=== PATIENT | male | born 1940 | race American Indian/Alaskan Native ===

== ENCOUNTER 2017-11-15 18:54 | Emergency (ER) | payer MEDICARE, OTHER ==
[2017-11-15 19:27] VITALS: BP 163/81
[2017-11-15] MEDS ORDERED: PERCOCET 5/325 PO ONE (20:19)
--- NOTE | 2017-11-15 20:19 | Emergency Department Report ---
ED Fall HPI - General Chief Complaint: Extremity Problem,Nontraumatic Stated Complaint: ELBOW SWELLING Time Seen by Provider: 11/15/17 20:18 Source: patient, family Mode of arrival: Ambulatory Limitations: No Limitations - History of Present Illness Initial Comments: Patient reports that he fell and heard a pop 3 days ago was at home. He states that he slipped and fell and hit his left elbow while he was trying to get up from the table. He is brought to emergency room by his family member. Patient states his pain is 10/10 and throbbing and aching. He reports swelling to his elbow. He states that he took oxycodone at home for pain which helped. Patient reports that he is worried that it might be broken. Denies any numbness or tingling to extremities or any radiation of pain distally or proximally. Patient has multiple medical problems and has a primary care doctor that he sees. Pain is worse with movement and better with rest. MD Complaint: fall Onset/Timin -: days(s) Fall From: chair, other (while getting out of chair) When Fall Occurred: # days [employer] (3 days) Fall Witnessed: yes, by family Place Fall Occurred: home Loss of Consciousness: none Prolonged Down Time?: no Symptoms Prior to Fall: none Location - Extremities: Left: Elbow (pain and swelling) Severity: severe Severity scale (0 -10): 10 Quality: aching, other (Throbbing) Context: tripped/slipped Associated Symptoms: denies: headache, neck pain, numbness, weakness, chest paint, shortness of breath, abdominal pain, hematuria, unable to walk, lightheaded, vertigo, confusion - Related Data Home Medications Medication Instructions Recorded Confirmed Last Taken Aspirin [Aspirin BABY CHEW TAB] 81 mg PO QDAY 05/03/13 12/12/13 11/15/13 Hydralazine HCl [hydrALAZINE] 100 mg PO TID 05/03/13 12/12/13 11/15/13 NIFEdipine [NIFEdipine ER] 60 mg PO DAILY 05/03/13 12/12/13 11/15/13 Tamsulosin [Flomax] 0.4 mg PO QDAY 05/03/13 12/12/13 11/15/13 Atorvastatin (Nf) [Lipitor] 10 mg PO QHS 11/16/13 12/12/13 11/15/13 Cetirizine HCl [Allergy Relief] 10 mg PO DAILY 11/16/13 12/12/13 11/15/13 Finasteride [Propecia] 5 mg PO QDAY 11/16/13 12/12/13 11/15/13 Fluticasone Propionate [Flovent 1 puff IH BID 11/16/13 12/12/13 11/15/13 Diskus] HYDROcodone/APAP 5-325 [[place] 1 each PO Q6HR PRN 11/16/13 12/12/13 11/15/13 5-325 mg TAB] Latanoprost 0.005% 1 drop OP QPM 11/16/13 12/12/13 11/15/13 Omeprazole [PriLOSEC] 20 mg PO QDAY 11/16/13 12/12/13 11/15/13 Sildenafil Citrate [Viagra] 100 mg PO QDAY PRN 11/16/13 12/12/13 11/15/13 cloNIDine-TTS PATCH [Catapres-Tts 1 patch TD QWEEK 11/16/13 12/12/13 11/15/13 Patch] Insulin Regular, Human [HumuLIN R] 5 units SQ QAM 11/20/13 12/12/13 Unknown Previous Rx's Medication Instructions Recorded Last Taken Type Doxazosin [Cardura] 2 mg PO BID #60 tablet 05/06/13 11/15/13 Rx Furosemide [Lasix] 40 mg PO DAILY #30 tablet 05/06/13 11/15/13 Rx Metoprolol Xl [Metoprolol 200 mg PO DAILY #30 tablet 11/20/13 Unknown Rx SUCCINATE ER TAB] ALBUTEROL Inhaler [ProAir HFA 2 puff IH PRN PRN #2 inha 12/15/13 Unknown Rx Inhaler] Furosemide [Lasix] 40 mg PO DAILY #30 tablet 12/15/13 Unknown Rx Rivaroxaban [Xarelto] 20 mg PO QDAY #30 tab 12/15/13 Unknown Rx Lidocaine [Lidoderm] 1 each TP QDAY PRN #5 adh..patch 11/15/17 Unknown Rx Allergies Allergy/AdvReac Type Severity Reaction Status Date / Time allopurinol Allergy Hives Verified 11/16/13 04:12 ED Review of Systems ROS: Stated complaint: ELBOW SWELLING Other details as noted in HPI Constitutional: denies: chills, fever Eyes: denies: eye pain, eye discharge, vision change ENT: denies: ear pain, throat pain Respiratory: denies: cough, orthopnea, shortness of breath, SOB with exertion, SOB at rest, stridor, wheezing Cardiovascular: denies: chest pain, palpitations, dyspnea on exertion, edema, syncope, paroxysmal nocturnal dyspnea Endocrine: no symptoms reported Gastrointestinal: denies: abdominal pain, nausea, vomiting, diarrhea, constipation, hematemesis, melena, hematochezia Genitourinary: denies: urgency, dysuria, frequency, hematuria Musculoskeletal: joint swelling, arthralgia. denies: back pain, myalgia Skin: denies: rash, lesions Neurological: denies: headache, weakness, numbness, paresthesias, confusion, abnormal gait, vertigo ED Past Medical Hx - Past Medical History Previous Medical History?: Yes Hx Hypertension: Yes Hx Congestive Heart Failure: Yes Hx Diabetes: Yes Hx Arthritis: Yes (knees, gout) Hx COPD: Yes - Surgical History Past Surgical History?: Yes Additional Surgical History: hernia repair - Family History Family history: hypertension - Social History Smoking Status: Never Smoker Substance Use Type: None Other Social History: and lives with his family - Medications Home Medications: Home Medications Medication Instructions Recorded Confirmed Last Taken Type Aspirin [Aspirin BABY CHEW TAB] 81 mg PO QDAY 05/03/13 12/12/13 11/15/13 History Hydralazine HCl [hydrALAZINE] 100 mg PO TID 05/03/13 12/12/13 11/15/13 History NIFEdipine [NIFEdipine ER] 60 mg PO DAILY 05/03/13 12/12/13 11/15/13 History Tamsulosin [Flomax] 0.4 mg PO QDAY 05/03/13 12/12/13 11/15/13 History Doxazosin [Cardura] 2 mg PO BID #60 tablet 05/06/13 12/12/13 11/15/13 Rx Furosemide [Lasix] 40 mg PO DAILY #30 tablet 05/06/13 12/12/13 11/15/13 Rx Atorvastatin (Nf) [Lipitor] 10 mg PO QHS 11/16/13 12/12/13 11/15/13 History Cetirizine HCl [Allergy Relief] 10 mg PO DAILY 0512/12/13 11/15/13 History Finasteride [Propecia] 5 mg PO QDAY 11/16/13 12/12/13 11/15/13 History Fluticasone Propionate [Flovent 1 puff IH BID 11/16/13 12/12/13 11/15/13 History Diskus] HYDROcodone/APAP 5-325 [[place] 1 each PO Q6HR PRN 11/16/13 12/12/13 11/15/13 History 5-325 mg TAB] Latanoprost 0.005% 1 drop OP QPM 11/16/13 12/12/13 11/15/13 History Omeprazole [PriLOSEC] 20 mg PO QDAY 11/16/13 12/12/13 11/15/13 History Sildenafil Citrate [Viagra] 100 mg PO QDAY PRN 11/16/13 12/12/13 11/15/13 History cloNIDine-TTS PATCH [Catapres-Tts 1 patch TD QWEEK 11/16/13 12/12/13 11/15/13 History Patch] Insulin Regular, Human [HumuLIN R] 5 units SQ QAM 11/20/13 12/12/13 Unknown History Metoprolol Xl [Metoprolol 200 mg PO DAILY #30 tablet 11/20/13 12/12/13 Unknown Rx SUCCINATE ER TAB] ALBUTEROL Inhaler [ProAir HFA 2 puff IH PRN PRN #2 inha 12/15/13 Unknown Rx Inhaler] Furosemide [Lasix] 40 mg PO DAILY #30 tablet 12/15/13 Unknown Rx Rivaroxaban [Xarelto] 20 mg PO QDAY #30 tab 12/15/13 Unknown Rx Lidocaine [Lidoderm] 1 each TP QDAY PRN #5 adh..patch 11/15/17 Unknown Rx ED Physical Exam - General Limitations: No Limitations General appearance: alert, in no apparent distress - Head Head exam: Present: atraumatic, normocephalic, normal inspection, other (normal examination) - Eye Eye exam: Present: normal appearance, PERRL, EOMI. Absent: scleral icterus, conjunctival injection, nystagmus, periorbital swelling, periorbital tenderness Pupils: Present: normal accommodation - ENT ENT exam: Present: normal exam, normal orophraynx, mucous membranes moist - Neck Neck exam: Present: normal inspection, full ROM, other (no C-spine tenderness). Absent: tenderness, lymphadenopathy - Respiratory Respiratory exam: Present: normal lung sounds bilaterally. Absent: respiratory distress, wheezes, chest wall tenderness, accessory muscle use - Cardiovascular Cardiovascular Exam: Present: regular rate, normal rhythm, normal heart sounds. Absent: systolic murmur, diastolic murmur - GI/Abdominal GI/Abdominal exam: Present: soft, normal bowel sounds. Absent: distended, tenderness, guarding, rebound, rigid, organomegaly, mass, bruit, pulsatile mass , hernia - Extremities Exam Extremities exam: Present: normal inspection, full ROM (full range of motion to all joints but patient with pain with active range of motion to left elbow), tenderness (the palpate to left elbow), normal capillary refill, joint swelling (left elbow), other (no clubbing, cyanosis or edema to extremities. +2 pulses in all extremities. No rash, laceration or contusions to extremities. Joints are normal except left elbow joint with swelling and tenderness to palpate.). Absent: pedal edema, calf tenderness - Expanded Upper Extremity Exam Left General: Absent: normal inspection, abrasion, nail injury (#), foreign body, amputation, avulsion Shoulder Exam: Present: normal inspection, full ROM. Absent: tenderness, swelling, abrasion, laceration, ecchymosis, deformity, crepidus, dislocation, erythema, tenderness over AC joint Upper Arm exam: Present: normal inspection, full ROM. Absent: tenderness, swelling, abrasion, laceration, ecchymosis, deformity, crepidus, dislocation, erythema Elbow exam: Present: full ROM, tenderness, swelling, effusion, pain w/ pronation /supination, tenderness over radial head. Absent: normal inspection, abrasion, laceration, ecchymosis, deformity, crepidus, dislocation, erythema Forearm Wrist exam: Present: normal inspection, full ROM. Absent: tenderness, swelling, abrasion, laceration, ecchymosis, deformity, crepidus, dislocation, erythema, tenderness over anatomical snuff box, pain with axial thumb loading Hand Wrist exam: Present: normal inspection, full ROM. Absent: tenderness, swelling, abrasion, laceration, ecchymosis, deformity, crepidus, dislocation, erythema, amputation, nail avulsion, subungual hematoma Neuro motor exam: Present: wrist extension intact, thumb opposition intact, thumb IP flexion intact, thumb adduction intact, fingers 2-5 abduction intact Neurosensory exam: Present: 2-point discrimination, radial nerve intact, ulnar nerve intact, median nerve intact Vascular: Present: normal capillary refill, radial pulse, brachial pulse, ulnar pulse. Absent: vascular compromise, Pallo, pulse deficit radial art, pulse deficit ulnar art, pulse deficit brachial art - Back Exam Back exam: Present: normal inspection, full ROM, other (ambulates without any difficulties). Absent: tenderness, CVA tenderness (R), CVA tenderness (L), muscle spasm, paraspinal tenderness, vertebral tenderness, rash noted - Neurological Exam Neurological exam: Present: alert, oriented X3, normal gait, reflexes normal, other (no focal neurological deficit). Absent: motor sensory deficit - Psychiatric Psychiatric exam: Present: normal affect, normal mood - Skin Skin exam: Present: warm, dry, intact, normal color. Absent: rash ED Course Vital Signs 11/15/17 19:21 Temperature 98.9 F Pulse Rate 68 Respiratory 18 Rate Blood Pressure 163/81 O2 Sat by Pulse 98 Oximetry - Reevaluation(s) Reevaluation #1: 11/15/17 21:05 Patient received Percocet 5/325 mg 2 tablets by mouth in emergency room. He is already taking oxycodone at home. Pain has been relieved and still awaiting an x-ray results. - Orthopedic Splinting/Casting Injury #1 Side: left Upper Extremity Injury Location: elbow Upper Extremity Immobilizer: sling/shoulder immobilize Additional Comments: PT with good color, movement, sensation and temperature the fingers of left hand status post splint ED Medical Decision Making - Radiology Data Radiology results: report reviewed X-ray left elbow 3 views: No acute fractures seen. There is degenerative arthrosis, soft tissue swelling and a joint effusion Patient: NEO CHANDRA MR#: [id number] : 1940 Acct:[id number] Age/Sex: 77 / M ADM Date: 11/15/17 Loc: ED Attending Dr: Ordering Physician: LUCINDA FUENTES Date of Service: 11/15/17 Procedure(s): XR elbow 3+V LT Accession Number(s): [id number] cc: LUCINDA FUENTES Fluoro Time In Minutes: FINAL REPORT PROCEDURE: XR ELBOW 3+V LT TECHNIQUE: LEFT elbow radiographs, including AP, lateral, and oblique views. CPT 12122 HISTORY: fall with left elbow pain and swelling COMPARISON: No prior studies are available for comparison. FINDINGS: Fracture (s) and/or Dislocation(s): None . 11/15/2017 [employer] [email or web address] Alignment: Normal . Joint space(s): There is moderate degenerative arthrosis of the elbow joint.. Soft tissues: There is soft tissue swelling along the olecranon process of the ulna. There is a joint effusion with displacement of the anterior fat pad.. Bone mineralization: Normal . Foreign bodies: None . IMPRESSION: No acute fractures seen. There is degenerative arthrosis, soft tissue swelling and a joint effusion. Transcribed By: CO Dictated By: ISI ENAMORADO MD Electronically Authenticated By: ISI ENAMORADO MD Signed Date/Time: 11/15/172047 DD/ 47 TD/TT: 11/15/172047 - Medical Decision Making ED course: Patient here reports that he fell 3 days ago while trying to get out of the chair and injured his left elbow. He is reporting elbow pain without any radiation of pain proximally or distally. Physical finding for tender to palpate left elbow, positive effusion to left elbow and positive swelling. X- ray finding and reveal no fracture or dislocation but positive osteoarthritis, effusion and soft tissue swelling. She was given Percocet 5/325 mg 2 tablets by mouth in emergency room for left elbow pain which she voiced relief. Discharged home with his family in stable condition to follow up with his primary care physician in 2-[address] Terrell orthopedic doctor. Please see procedure note for application left upper extremity sling. Patient is already on oxycodone at home for chronic pain and I told him that this can cause falls so he needs to be careful with taking narcotics at his age. Patient reports that his elbow feels better status post sling. - Differential Diagnosis elbow fracture, elbow contusion, arthritis, effusion, Critical care attestation.: If time is entered above; I have spent that time in minutes in the direct care of this critically ill patient, excluding procedure time. ED Disposition Clinical Impression: Effusion, left elbow, Left elbow pain Accidental fall from chair Qualifiers: Encounter type: initial encounter Qualified Code(s): W07.XXXA - Fall from chair , initial encounter Osteoarthritis of left elbow Qualifiers: Osteoarthritis type: unspecified Qualified Code(s): M19.022 - Primary osteoarthritis, left elbow Sprain of elbow, left Qualifiers: Encounter type: initial encounter Qualified Code(s): S53.402A - Unspecified sprain of left elbow, initial encounter Disposition: TO HOME OR SELFCARE Is pt being admited?: No Does the pt Need Aspirin: No Condition: Stable Instructions: Arthralgia (ED), Elbow Sprain (ED), Osteoarthritis (ED), Fall Prevention for Older Adults (ED), Contusion in Adults (ED), RICE Therapy (ED) Additional Instructions: Please follow up with Dr. Terrell orthopedic doctor in 2-3 days for elbow injury. You can take your pain medicine that here prescribed at home by your primary care physician but please be careful when taking narcotics a year age because the skin cause falls. Increasing fluid intake The discharge instruction and fall and Rice therapy Prescriptions: Lidocaine [Lidoderm] 1 each TP QDAY PRN #5 adh..patch PRN Reason: left elbow pain Referrals: PAULIE ENCISO [Other] - 2-3 Days NEO TERRELL MD [Staff Physician] - 2-3 Days Forms: Accompanied Note
--- NOTE | 2017-11-15 20:54 | XRay Report ---
FINAL REPORT PROCEDURE: XR ELBOW 3+V LT TECHNIQUE: LEFT elbow radiographs, including AP, lateral, and oblique views. CPT 13102 HISTORY: fall with left elbow pain and swelling COMPARISON: No prior studies are available for comparison. FINDINGS: Fracture (s) and/or Dislocation(s): None . Alignment: Normal . Joint space(s): There is moderate degenerative arthrosis of the elbow joint.. Soft tissues: There is soft tissue swelling along the olecranon process of the ulna. There is a joint effusion with displacement of the anterior fat pad.. Bone mineralization: Normal . Foreign bodies: None . IMPRESSION: No acute fractures seen. There is degenerative arthrosis, soft tissue swelling and a joint effusion.
== END 2017-11-15 22:00 | disposition home or self-care (01) ==
LOC: ED 18:54
DX: S53.402A Unspecified sprain of left elbow, initial encounter (principal); M19.022 Primary osteoarthritis, left elbow; M25.422 Effusion, left elbow; I11.0 Hypertensive heart disease with heart failure; I50.9 Heart failure, unspecified; E11.9 Type 2 diabetes mellitus without complications; J44.9 Chronic obstructive pulmonary disease, unspecified; Z88.9 Allergy status to unspecified drugs, medicaments and biological substances; Z79.4 Long term (current) use of insulin; W07.XXXA Fall from chair, initial encounter; Y93.89 Activity, other specified; Y92.89 Other specified places as the place of occurrence of the external cause; Y99.8 Other external cause status
CPT/HCPCS: 99284

== ENCOUNTER 2017-12-25 03:57 | Emergency (ER) | payer MEDICARE, OTHER ==
[2017-12-25] MEDS ORDERED: CATAPRES PO ONE (05:13)
[2017-12-25 05:33] LABS: Basophils # (Auto) 0.1 K/mm3 (0.0-0.1); Basophils % (Auto) 1.1 % (0.0-1.8); Eosinophils # (Auto) 0.3 K/mm3 (0.0-0.4); Eosinophils % (Auto) 6.4 % (0.0-4.3); Hematocrit 33.4 % (35.5-45.6); Hemoglobin 10.6 gm/dl (11.8-15.2); Lymphocytes # (Auto) 0.8 K/mm3 (1.2-5.4); Lymphocytes % (Auto) 17.9 % (13.4-35.0); Mean Corpuscular HGB Conc 32 % (32-34); Mean Corpuscular Volume 72 fl (84-94); Monocytes # (Auto) 0.5 K/mm3 (0.0-0.8); Monocytes % (Auto) 10.8 % (0.0-7.3); Platelet Count 131 K/mm3 (140-440); Red Blood Count 4.62 M/mm3 (3.65-5.03); Red Cell Distribution Width 15.1 % (13.2-15.2)
[2017-12-25 05:34] LABS: Mean Corpuscular Hemoglobin 23 pg (28-32)
[2017-12-25 05:52] LABS: Albumin 4.1 g/dL (3.9-5); Calcium 9.2 mg/dL (8.4-10.2)
[2017-12-25 06:09] LABS: Chol/HDL Ratio 1.7 %
--- NOTE | 2017-12-25 06:26 | Cat Scan Report ---
FINAL REPORT EXAM: CT CERVICAL SPINE WO CON HISTORY: fall, etoh TECHNIQUE: Routine axial imaging was obtained of the cervical spine without IV contrast with sagittal and coronal reconstructions. FINDINGS: There is very mild levoscoliosis of the cervical spine. 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 There is no evidence of fracture. The alignment appears normal. There is varying degrees of facet arthropathy changes bilaterally with varying degrees of neural foraminal impingement. The prevertebral soft tissues appear normal. There is moderate to severe arthritic changes of the C1-C2 articulation. IMPRESSION: Extensive arthritic changes as described. No acute injury. Incidental note is made of 4.3 cm in diameter subcu lipoma overlying the dorsal soft tissues of the lower neck.
--- NOTE | 2017-12-25 06:31 | Cat Scan Report ---
FINAL REPORT EXAM: CT HEAD/BRAIN WO CON HISTORY: fall, etoh TECHNIQUE: Routine axial imaging was obtained of the brain without IV contrast. FINDINGS: There is an acute right convexity subdural hematoma overlying the right frontal temporal and parietal lobes measuring 11.9 mm in thickness. There is approximately 4.5 mm of right to left subfalcine shift. There is no localized parenchymal hemorrhage. The ventricular system is appropriate in size. The basal cisterns appear normal. The sinuses reveal secretions in the right maxillary sinus. The mastoid air cells are well pneumatized. There is no evidence of skull fracture. There is non specific radiopaque debris in the scalp tissues overlying left temporal bone and left parietal bones. IMPRESSION: Acute right convexity subdural hematoma measuring 11.9 mm in thickness. Approximately 4.5 mm of right to left subfalcine shift. Secretions in the right maxillary sinus. No evidence of skull fracture.
--- NOTE | 2017-12-25 06:33 | Cat Scan Report ---
FINAL REPORT EXAM: CT FACIAL BONES WO CON HISTORY: fall, etoh TECHNIQUE: Routine axial imaging was obtained of the facial bones without IV contrast with sagittal and coronal reconstructions. FINDINGS: The sinuses reveal mucosal thickening and secretions in the maxillary and ethmoidal air cells bilaterally. The intraorbital structures appear normal. The orbital rims and floors appear intact. The nasal bones, zygomatic arches and mandible show no evidence of fracture. The soft tissues are unremarkable. IMPRESSION: No evidence of acute facial bone fracture. Bilateral maxillary and ethmoidal sinusitis.
--- NOTE | 2017-12-25 06:44 | Emergency Department Report ---
HPI - General Chief Complaint: Fall Time Seen by Provider: 12/25/17 06:23 - HPI HPI: Room 17 The patient is a 77-year-old male presenting with a chief complaint of headache after fall. Family states last night the patient had consumed alcohol and had several falls. Family states on the third fall the patient struck his head on the ground and lost consciousness for between 30-45 seconds. The patient only complains of headache and some right thigh soreness with movement. Patient denies any other forms of pain. Location: Head Duration: [See above] Quality: Headache Severity: 8-9/10 Modifying factors: [see above] Context: [see above] Mode of transportation: [not driving] ED Past Medical Hx - Past Medical History Hx Hypertension: Yes Hx Congestive Heart Failure: Yes Hx Arthritis: Yes (knees, gout) Hx COPD: Yes - Surgical History Past Surgical History?: Yes Additional Surgical History: hernia repair, cardiac ablation - Family History Family history: no significant - Social History Smoking Status: Never Smoker Substance Use Type: Alcohol (binge drinks occasional) - Medications Home Medications: Home Medications Medication Instructions Recorded Confirmed Last Taken Type Aspirin [Aspirin BABY CHEW TAB] 81 mg PO QDAY 05/03/13 12/12/13 11/15/13 History Hydralazine HCl [hydrALAZINE] 100 mg PO TID 05/03/13 12/12/13 11/15/13 History NIFEdipine [NIFEdipine ER] 60 mg PO DAILY 05/03/13 12/12/13 11/15/13 History Tamsulosin [Flomax] 0.4 mg PO QDAY 05/03/13 12/12/13 11/15/13 History Doxazosin [Cardura] 2 mg PO BID #60 tablet 05/06/13 12/12/13 11/15/13 Rx Furosemide [Lasix] 40 mg PO DAILY #30 tablet 05/06/13 12/12/13 11/15/13 Rx Atorvastatin (Nf) [Lipitor] 10 mg PO QHS 11/16/13 12/12/13 11/15/13 History Cetirizine HCl [Allergy Relief] 10 mg PO DAILY 11/16/13 12/12/13 11/15/13 History Finasteride [Propecia] 5 mg PO QDAY 11/16/13 12/12/13 11/15/13 History Fluticasone Propionate [Flovent 1 puff IH BID 11/16/13 12/12/13 11/15/13 History Diskus] HYDROcodone/APAP 5-325 [Lyles 1 each PO Q6HR PRN 11/16/13 12/12/13 11/15/13 History 5-325 mg TAB] Latanoprost 0.005% 1 drop OP QPM 11/16/13 12/12/13 11/15/13 History Omeprazole [PriLOSEC] 20 mg PO QDAY 11/16/13 12/12/13 11/15/13 History Sildenafil Citrate [Viagra] 100 mg PO QDAY PRN 11/16/13 12/12/13 11/15/13 History cloNIDine-TTS PATCH [Catapres-Tts 1 patch TD QWEEK 11/16/13 12/12/13 11/15/13 History Patch] Insulin Regular, Human [HumuLIN R] 5 units SQ QAM 11/20/13 12/12/13 Unknown History Metoprolol Xl [Metoprolol 200 mg PO DAILY #30 tablet 11/20/13 12/12/13 Unknown Rx SUCCINATE ER TAB] ALBUTEROL Inhaler [ProAir HFA 2 puff IH PRN PRN #2 inha 12/15/13 Unknown Rx Inhaler] Furosemide [Lasix] 40 mg PO DAILY #30 tablet 12/15/13 Unknown Rx Rivaroxaban [Xarelto] 20 mg PO QDAY #30 tab 12/15/13 Unknown Rx Lidocaine [Lidoderm] 1 each TP QDAY PRN #5 adh..patch 11/15/17 Unknown Rx ED Review of Systems ROS: Stated complaint: ETOH/FALL Other details as noted in HPI Constitutional: no symptoms reported Eyes: denies: eye pain ENT: denies: throat pain Cardiovascular: denies: chest pain Gastrointestinal: denies: abdominal pain Genitourinary: denies: dysuria Musculoskeletal: denies: back pain Neurological: headache Physical Exam - Physical Exam Vital Signs: Vital Signs 12/25/17 12/25/17 12/25/17 04:12 04:20 05:30 Temperature 98.2 F 98.2 F Pulse Rate 74 74 77 Respiratory 25 H 23 Rate Blood Pressure 214/107 210/102 Blood Pressure 209/91 [Left] O2 Sat by Pulse 100 100 Oximetry 12/25/17 06:13 Temperature Pulse Rate 76 Respiratory 14 Rate Blood Pressure Blood Pressure 211/103 [Left] O2 Sat by Pulse 100 Oximetry Physical Exam: GENERAL: The patient is well-developed well-nourished male lying on stretcher not appearing to be in acute distress. [] HEENT: Normocephalic. Linear abrasion to the right side of the bridge of nose. Extraocular motions are intact. Patient has moist mucous membranes. NECK: Supple. No meningitic signs are noted. Trachea midline CHEST/LUNGS: Clear to auscultation. There is no respiratory distress noted. HEART/CARDIOVASCULAR: Regular. There is no tachycardia. There is no gallop rub or murmur. ABDOMEN: Abdomen is soft, with mild suprapubic discomfort. Patient has normal bowel sounds. There is no abdominal distention. SKIN: There is no rash. There is no edema. There is no diaphoresis. NEURO: The patient is awake, alert, and oriented. The patient is cooperative. The patient has no focal neurologic deficits. The patient has normal speech. Cranial nerves II through XII grossly intact, no drift. Normal sensation throughout MUSCULOSKELETAL: There is no deformity. ED Course Vital Signs 12/25/17 12/25/17 12/25/17 04:12 04:20 05:30 Temperature 98.2 F 98.2 F Pulse Rate 74 74 77 Respiratory 25 H 23 Rate Blood Pressure 214/107 210/102 Blood Pressure 209/91 [Left] O2 Sat by Pulse 100 100 Oximetry 12/25/17 06:13 Temperature Pulse Rate 76 Respiratory 14 Rate Blood Pressure Blood Pressure 211/103 [Left] O2 Sat by Pulse 100 Oximetry - Consultations Consultation #1: 12/25/17 06:41 [facility] transfer line called 12/25/17 06:48 States they do not have neurosurgery Consultation #2: 12/25/17 06:51 [facility] transfer line called 12/25/17 07:00 Patient accepted by [facility] transfer service ED to ED. Trauma attending . Elevated creatinine and troponin discussed with transfer line ED Medical Decision Making - Lab Data Result diagrams: 12/25/17 05:18 12/25/17 05:18 Laboratory Tests 12/25/17 12/25/17 12/25/17 05:18 05:18 05:18 WBC 4.7 RBC 4.62 Hgb 10.6 L Hct 33.4 L MCV 72 L MCH 23 L MCHC 32 RDW 15.1 Plt Count 131 L Lymph % (Auto) 17.9 [place] % (Auto) 10.8 H Eos % (Auto) 6.4 H Baso % (Auto) 1.1 Lymph # 0.8 L [place] # 0.5 Eos # 0.3 Baso # 0.1 Seg Neutrophils % 63.8 Seg Neutrophils # 3.0 Sodium 140 Potassium 3.7 Chloride 100.4 Carbon Dioxide 25 Anion Gap 18 BUN 47 H Creatinine 3.2 H Estimated GFR 23 BUN/Creatinine Ratio 15 Glucose 105 H Calcium 9.2 Magnesium 2.30 Total Bilirubin 0.30 AST 29 ALT 11 Alkaline Phosphatase 37 Total Creatine Kinase 193 H Troponin T Total Protein 7.5 Albumin 4.1 Albumin/Globulin Ratio 1.2 Triglycerides Cholesterol LDL Cholesterol Direct HDL Cholesterol Cholesterol/HDL Ratio Urine Color Urine Turbidity Urine pH Ur Specific [place] Urine Protein Urine Glucose (UA) Urine Ketones Urine Blood Urine Nitrite Urine Bilirubin Urine Urobilinogen Ur Leukocyte Esterase Urine WBC (Auto) Urine RBC (Auto) Hyaline Casts Plasma/Serum Alcohol 0.13 H 18 18 05:18 06:13 WBC RBC Hgb Hct MCV MCH MCHC RDW Plt Count Lymph % (Auto) [place] % (Auto) Eos % (Auto) Baso % (Auto) Lymph # [place] # Eos # Baso # Seg Neutrophils % Seg Neutrophils # Sodium Potassium Chloride Carbon Dioxide Anion Gap BUN Creatinine Estimated GFR BUN/Creatinine Ratio Glucose Calcium Magnesium Total Bilirubin AST ALT Alkaline Phosphatase Total Creatine Kinase Troponin T 0.107 H* Total Protein Albumin Albumin/Globulin Ratio Triglycerides 48 Cholesterol 87 LDL Cholesterol Direct 39 L HDL Cholesterol 51 Cholesterol/HDL Ratio 1.70 Urine Color Yellow Urine Turbidity Clear Urine pH 6.0 Ur Specific [place] 1.006 Urine Protein 30 mg/dl Urine Glucose (UA) Neg Urine Ketones Neg Urine Blood Neg Urine Nitrite Neg Urine Bilirubin Neg Urine Urobilinogen < 2.0 Ur Leukocyte Esterase Neg Urine WBC (Auto) < 1.0 Urine RBC (Auto) 4.0 Hyaline Casts 1 Plasma/Serum Alcohol - EKG Data -: EKG Interpreted by Me EKG shows normal: sinus rhythm Rate: normal - EKG Data When compared to previous EKG there are: previous EKG unavailable - Radiology Data Radiology results: report reviewed (CT head, CT cervical spine, CT facial bones) , image reviewed (CT head, CT cervical spine, CT facial bones) [facility] [address] [place] [address] Cat Scan Report Signed Patient: NEO CHANDRA MR#: [id number] : 1940 Acct:[id number] Age/Sex: 77 / M ADM Date: 12/25/17 Loc: ED Attending Dr: Ordering Physician: LUIS HINES MD Date of Service: 12/25/17 Procedure(s): CT head/brain wo con Accession Number(s): [id number] cc: LUIS HINES MD FINAL REPORT EXAM: CT HEAD/BRAIN WO CON HISTORY: fall, etoh TECHNIQUE: Routine axial imaging was obtained of the brain without IV contrast. FINDINGS: There is an acute right convexity subdural hematoma overlying the right frontal temporal and parietal lobes measuring 11.9 mm in thickness. There is approximately 4.5 mm of right to left subfalcine shift. There is no localized parenchymal hemorrhage. The ventricular system is appropriate in size. The basal cisterns appear normal. The sinuses reveal secretions in the right maxillary sinus. The mastoid air cells are well pneumatized. There is no evidence of skull fracture. There is non specific radiopaque debris in the scalp tissues overlying left temporal bone and left parietal bones. IMPRESSION: Acute right convexity subdural hematoma measuring 11.9 mm in thickness. Approximately 4.5 mm of right to left subfalcine shift. Secretions in the right maxillary sinus. No evidence of skull fracture. Transcribed By: RB Dictated By: NEO ZEPEDA MD Electronically Authenticated By: NEO ZEPEDA MD Signed Date/Time: 12/25/17625 DD/ 5 TD/TT: 12/25/[address] [address] Cat Scan Report Signed Patient: NEO CHANDRA MR#: [id number] : 1940 Acct:[id number] Age/Sex: 77 / M ADM Date: 12/25/17 Loc: ED Attending Dr: Ordering Physician: LUIS HINES MD Date of Service: 12/25/17 Procedure(s): CT facial bones wo con Accession Number(s): [id number] cc: LUIS HINES MD FINAL REPORT EXAM: CT FACIAL BONES WO CON HISTORY: fall, etoh TECHNIQUE: Routine axial imaging was obtained of the facial bones without IV contrast with sagittal and coronal reconstructions. FINDINGS: The sinuses reveal mucosal thickening and secretions in the maxillary and ethmoidal air cells bilaterally. The intraorbital structures appear normal. The orbital rims and floors appear intact. The nasal bones, zygomatic arches and mandible show no evidence of fracture. The soft tissues are unremarkable. IMPRESSION: No evidence of acute facial bone fracture. Bilateral maxillary and ethmoidal sinusitis. Transcribed By: RB Dictated By: NEO ZEPEDA MD Electronically Authenticated By: NEO ZEPEDA MD Signed Date/Time: 12/25/17627 DD/ 7 TD/TT: 12/25/17627 [facility] [address] [place] [address] Cat Scan Report Signed Patient: NEO CHANDRA MR#: [id number] : 1940 Acct:[id number] Age/Sex: 77 / M ADM Date: 12/25/17 Loc: ED Attending Dr: Ordering Physician: LUIS HINES MD Date of Service: 12/25/17 Procedure(s): CT cervical spine wo con Accession Number(s): [id number] cc: LUIS HINES MD FINAL REPORT EXAM: CT CERVICAL SPINE WO CON HISTORY: fall, etoh TECHNIQUE: Routine axial imaging was obtained of the cervical spine without IV contrast with sagittal and coronal reconstructions. FINDINGS: There is very mild levoscoliosis of the cervical spine. 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 There is no evidence of fracture. The alignment appears normal. There is varying degrees of facet arthropathy changes bilaterally with varying degrees of neural foraminal impingement. The prevertebral soft tissues appear normal. There is moderate to severe arthritic changes of the C1-C2 articulation. IMPRESSION: Extensive arthritic changes as described. No acute injury. Incidental note is made of 4.3 cm in diameter subcu lipoma overlying the dorsal soft tissues of the lower neck. Transcribed By: RB Dictated By: NEO ZEPEDA MD Electronically Authenticated By: NEO ZEPEDA MD Signed Date/Time: 12/25/17620 DD/ 0 TD/TT: 12/25/17620 - Differential Diagnosis ICH, closed head injury, alcohol intoxication, renal insufficiency Critical care attestation.: If time is entered above; I have spent that time in minutes in the direct care of this critically ill patient, excluding procedure time. ED Disposition Clinical Impression: Subdural hematoma, Renal insufficiency, Alcohol intoxication, Elevated troponin Disposition: DC/TX-70 ANOTHER TYPE HLTHCARE Is pt being admited?: No Does the pt Need Aspirin: No Condition: Serious Referrals: PRIMARY CARE,MD [Primary Care Provider] - 3-5 Days Time of Disposition: 07:04 (awaiting transport)
[2017-12-25 06:54] LABS: Bilirubin,Urine NEG (Negative); Blood,Urine NEG (Negative); Color,Urine Yellow (Yellow); Hyaline Casts,Urine 1 /LPF; Urobilinogen,Urine < 2.0 mg/dL (<2.0); WBC,Urine < 1.0 /HPF (0.0-6.0)
[2017-12-25] MEDS ORDERED: APRESOLINE ONE (06:54)
[2017-12-25] MEDS ORDERED: APRESOLINE IV ONE (06:55)
[2017-12-25 07:03] LABS: Amphetamine Screen,Urine PRESUMPTIVE NEGATIVE; Benzodiazepines Screen,Urine PRESUMPTIVE NEGATIVE; Cannabinoid Screen,Urine PRESUMPTIVE NEGATIVE; Cocaine Screen,Urine PRESUMPTIVE NEGATIVE; Methadone Screen,Urine PRESUMPTIVE NEGATIVE; Opiate Screen,Urine PRESUMPTIVE NEGATIVE
[2017-12-25 07:18] LABS: INR 1.05 (0.87-1.13)
[2017-12-25 07:19] LABS: Partial Thromboplastin Time 30.9 Sec. (24.2-36.6)
[2017-12-25 07:58] VITALS: BP 180/84
== END 2017-12-25 07:56 | disposition other institution (70) ==
LOC: ED 03:57
DX: S06.5X9A Traumatic subdural hemorrhage with loss of consciousness of unspecified duration, initial encounter (principal); N28.9 Disorder of kidney and ureter, unspecified; F10.129 Alcohol abuse with intoxication, unspecified; I10 Essential (primary) hypertension; I50.9 Heart failure, unspecified; M19.90 Unspecified osteoarthritis, unspecified site; E11.9 Type 2 diabetes mellitus without complications; Z79.4 Long term (current) use of insulin; Z79.82 Long term (current) use of aspirin; W19.XXXA Unspecified fall, initial encounter; Y93.89 Activity, other specified; Y99.8 Other external cause status; Y92.89 Other specified places as the place of occurrence of the external cause
CPT/HCPCS: 36415; 70450; 70486; 72125; 80053; 80061; 80307; 81001; 82550; 83735; 84484; 85025; 85610; 85730; 93005; 93010; 96374; 99285; G0480; J0360; 80320